=== PATIENT | female | born 1950 | race Caucasian/White ===

== ENCOUNTER 2018-05-21 12:40 | Emergency (ER) | payer BC, MEDICARE, OTHER ==
--- NOTE | 2018-05-21 13:49 | UC ---
Ana Kan Rebecca, scribed for Nilson Higuera MD on 05/21/18 at 1310 . Skin Complaint HPI - HPI Summary HPI Summary: Pt is a 67 y/o F who presents to [facility] c/o rash on the forehead. She noticed it Friday afternoon (4 days ago), initially suspecting it to be an insect bite. Believed that she had a stinger or similar in the lesion when it first began. She has 2 lesions that are raised and erythematous to which she has applied triple antibiotic and Benadryl creama. [facility] were slightly pruritic, though no longer. Associated pain is mild, ranked 2/10 and is not aggravated by palpation. Additionally notes mild right-sided scalp "tenderness." Received the old Shingles vaccination, but not the new one. - History of Current Complaint Chief Complaint: [facility] Time Seen by Provider: 05/21/18 13:04 Stated Complaint: SKIN ISSUE Hx Obtained From: Patient Onset/Duration: Lasting Days - 4 days, Still Present Current Severity: Mild Pain Intensity: 2 Pain Scale Used: 0-10 Numeric Location: Face - Forehead Character: Redness, Raised Aggravating Factor(s): Nothing Alleviating Factor(s): Nothing - Allergy/Home Medications Allergies/Adverse Reactions: Allergies Allergy/AdvReac Type Severity Reaction Status Date / Time No Known Allergies Allergy Verified 05/21/18 12:59 Home Medications: Home Medications Docusate CAP* [Colace Cap*] 100 mg PO DAILY 05/21/18 [History Confirmed 05/21/18 ] Lisinopril TAB* [Prinivil TAB 10 MG*] 10 mg PO DAILY 05/21/18 [History Confirmed 05/21/18] Multivitamin [Multivitamins] 1 cap PO DAILY 05/21/18 [History Confirmed 05/21/18 ] Polyethylene Glycol 3350* [Miralax*] 17 gm PO DAILY PRN 05/21/18 [History Confirmed 05/21/18] Pravastatin (NF) [Pravachol (NF)] 10 mg PO 1700 05/21/18 [History Confirmed 04/03] diPHENhydraMINE 2% CREAM(NF) [Benadryl 2% CREAM (NF)] 1 applic TOPICAL DAILY PRN 05/21/18 [History Confirmed 05/21/18] Review of Systems Constitutional: Negative Skin: Rash - Forehead, Other - R-sided scalp "tenderness" Eyes: Negative ENT: Negative Respiratory: Negative Cardiovascular: Negative Gastrointestinal: Negative Genitourinary: Negative Motor: Negative Neurovascular: Negative Musculoskeletal: Negative Neurological: Negative Psychological: Negative All Other Systems Reviewed And Are Negative: Yes PMH/Surg Hx/FS Hx/Imm Hx - Additional Past Medical History Additional PMH: NEGATIVE PMHx: Bleeding disorders, DM, bleeding disorder Cardiovascular History: Hypertension - Surgical History Surgical History: Yes Surgery Procedure, Year, and Place: knee surgery. lipoma removed from groin area 10 years ago - Family History Known Family History: Negative: Blood Disorder - Social History Alcohol Use: Occasionally Substance Use Type: None Smoking Status (MU): Never Smoked Tobacco Physical Exam - Summary Physical Exam Summary: Appearance: Well appearing, no pain distress Skin: warm, dry, reflects adequate perfusion Head/face: She has 2 irregular raised areas of erythema in the middle of the forehead with what looks like a central punctum and clear fluid that comes out, no lesions on the nose or scalp Eyes: EOMI, RODRICK, no eye erythema ENT: normal Neck: supple, non-tender Respiratory: CTA, breath sounds present Cardiovascular: RRR, pulses symmetrical Musculoskeletal: normal, strength/ROM intact Neuro: normal, sensory motor intact, A&Ox3 Triage Information Reviewed: Yes Vital Signs: Initial Vital Signs Temp 98.5 F 05/21/18 12:54 Pulse 72 05/21/18 12:54 Resp 16 05/21/18 12:54 BP 129/90 05/21/18 12:54 Pulse Ox 99 05/21/18 12:54 Vital Signs Reviewed: Yes Course/Dx - Course Course Of Treatment: Area developed after which she felt was an insect bite to the mid forehead. There are 2 areas that look like they began as vesicular lesions now with erythema surrounding. Clear fluid comes out. One lesion appears to cross the midline making zoster less likely. She has also been vaccinated. I will use topical hydrocortisone sparingly, maybe one or 2 to times as well as a short course of Keflex and Valtrex given the off chance that it is zoster. - Diagnoses Provider Diagnoses: Insect bite with localized reaction Discharge - Sign-Out/Discharge Documenting (check all that apply): Discharge/Admit/Transfer - Discharge - Discharge Plan Condition: Good Disposition: HOME Prescriptions: Cephalexin CAP* [Keflex CAP*] 500 mg PO TID #21 cap ValACYclovir (*) [Valtrex 1 GM(*)] 1 gm PO TID #21 tab Patient Education Materials: Insect Bite or Sting (ED) Referrals: Rosie QUINONES,Danie Liz [Primary Care Provider] - Additional Instructions: Do not use Benadryl or triple antibiotic ointment. Apply a small amount of Hydrocortisone cream today and tomorrow. Return if worse, new symptoms or other concerns. - Billing Disposition and Condition Condition: GOOD Disposition: Home The documentation as recorded by the Ana julian Rebecca accurately reflects the service I personally performed and the decisions made by , Nilson Higuera MD.
== END 2018-05-21 13:33 | disposition home or self-care (01) ==
LOC: UCEAST 12:40
DX: S00.86XA Insect bite (nonvenomous) of other part of head, initial encounter (principal); W57.XXXA Bitten or stung by nonvenomous insect and other nonvenomous arthropods, initial encounter; Y93.9 Activity, unspecified; Y92.9 Unspecified place or not applicable; R21 Rash and other nonspecific skin eruption; I10 Essential (primary) hypertension
CPT/HCPCS: 99202; G0463